=== PATIENT | female | born 1935 | race Caucasian/White ===

== ENCOUNTER 2017-04-16 11:15 | Emergency (ER) | payer OTHER ==
--- NOTE | 2017-04-16 11:24 | CPEKG ---
Heart Rate: 85 RR Interval: 706 QRSD Interval: 80 QT Interval: 368 QTC Interval: 438 QRS [place]: -27 T Wave [place]: 24 EKG Severity - ABNORMAL ECG - EKG Impression: ATRIAL FIBRILLATION EKG Impression: LOW VOLTAGE THROUGHOUT EKG Impression: CONSIDER ANTEROSEPTAL INFARCT Electronically Signed By: Corazon Gould 16-Apr-2017 15:49:02
[2017-04-16 11:26] VITALS: RESP 18
[2017-04-16] MEDS ORDERED: NS 1,000 ML IV ONE (11:48)
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
[2017-04-16 12:03] VITALS: O2SAT 92
[2017-04-16 12:03] LABS: % IMMATURE GRANULYOCYTES 0.3 % (0.0-1.1); ABSOLUTE IMMATURE GRANULOCYTES 0.02 10^3/uL (0.00-0.10); ADD DIFF? NO; ADD MORPH? NO; ADD SCAN? NO; ATYPICAL LYMPHOCYTE FLAG 50 (0-99); FRAGMENT RBC FLAG 0 (0-99); HEMATOCRIT 44.6 % (38.0-47.0); LEFT SHIFT FLG 0 (0-99); LIPEMIA HEMOLYSIS FLAG 80 (0-99); MEAN CELL HEMOGLOBIN 30.2 pg (27.9-34.1); MEAN CELL HEMOGLOBIN CONCENTR. 33.6 g/dL (32.4-36.7); MEAN CELL VOLUME 89.9 fL (81.5-99.8); MEAN PLATELET VOLUME 10.9 fL (8.7-11.7); PLATELET CLUMPS FLAG 0 (0-99); PLATELET COUNT 206 10^3/uL (150-400); RED BLOOD CELL COUNT 4.96 10^6/uL (4.18-5.33); RED CELL DISTRIBUTION WIDTH 13.2 % (11.5-15.2)
[2017-04-16 12:13] LABS: ALANINE AMINOTRANSFERASE 37 IU/L (9-52); ALBUMIN 3.8 g/dL (3.5-5.0); ALKALINE PHOSPHATASE 82 IU/L (38-126); ANION GAP 13 mEq/L (8-16); ASPARTATE AMINOTRANSFERASE 27 IU/L (14-46); BILIRUBIN,TOTAL 0.9 mg/dL (0.1-1.4); BILIRUBIN-CONJUGATED 0.3 mg/dL (0.0-0.5); BILIRUBIN-UNCONJUGATED 0.6 mg/dL (0.0-1.1); CALCIUM 9.5 mg/dL (8.5-10.4); CARBON DIOXIDE 22 mEq/l (22-31); CHLORIDE 104 mEq/L (97-110); CREATININE 0.9 mg/dL (0.6-1.0); GLOMERULAR FILTRATION RATE > 60; GLUCOSE 105 mg/dL (70-100); POTASSIUM 4.1 mEq/L (3.5-5.2); SODIUM 139 mEq/L (134-144); TOTAL PROTEIN 6.2 g/dL (6.3-8.2)
[2017-04-16 12:20] LABS: TROPONIN I < 0.012 ng/mL (0.000-0.034)
[2017-04-16 12:49] LABS: COLOR YELLOW; LEUKOCYTE ESTERASE,URINE NEGATIVE (NEGATIVE); NITRITE,URINE NEGATIVE (NEGATIVE)
[2017-04-16 12:52] LABS: MUCUS 1+ /lpf (NONE-1+)
[2017-04-16 13:22] VITALS: BP 143/84; PULSE 83
[2017-04-16 13:28] VITALS: TEMP 98.6
== END 2017-04-16 13:28 | disposition home or self-care (01) ==
PROC: 3E0337Z Introduction of Electrolytic and Water Balance Substance into Peripheral Vein, Percutaneous Approach (ICD-10-PCS; principal; 2017-04-16)
DX: R55 Syncope and collapse (principal); E86.9 Volume depletion, unspecified; I10 Essential (primary) hypertension